=== PATIENT | female | born 1970 | race Hispanic/Latino ===

== ENCOUNTER 2019-05-20 13:25 | Outpatient (CLI) | payer BC ==
[~2019-05-20 13:25] MED LIST: Iopamidol-370 76% 500 ML 1 ML ONE
--- NOTE | 2019-05-20 15:30 | CT ---
CT ABDOMEN AND PELVIS WITH IV CONTRAST 05/20/2019 CLINICAL INFORMATION: Left lower quadrant abdominal pain. COMPARISON: None. Technique: Multiple contiguous axial CT images are obtained through the abdomen and pelvis with IV contrast. Cor onal reformatted images are provided. FINDINGS: Lower Chest: within normal limits. Vessels: Abdominal aorta is normal in caliber without evidence of an aortic dissection. Abdomen: Portal vein:Patent Gallbladder: Within normal limits for CT imaging. Liver: within normal limits. Spleen: within normal limits. Pancreas: within normal limits. Adrenals: within normal limits. Kidneys: within normal limits. Bowel: Normal caliber. Appendix: The appendix is visualized and normal in caliber. Peritoneum: No ascites or free air; no fluid collection. Mesentery and Retroperitoneum: No enlarged mesenteric or retroperitoneal lymph nodes. Abdominal Wall: within normal limits. Pelvis: Reproductive Organs: No pelvic masses. Pelvis within normal limits. Bladder: Decompressed Bones: Mild degenerative changes visualized lower thoracic spine. IMPRESSION: No acute findings in the abdomen or pelvis.
== END 2019-05-20 13:26 | disposition home or self-care (01) ==
LOC: BICCT 13:25
PROVIDERS: ATTEND Physician Assistant
DX: R10.32 Left lower quadrant pain (principal)
CPT/HCPCS: 74177; Q9967

== ENCOUNTER 2025-02-14 16:26 | Emergency (ER) | payer BC | END 2025-02-14 18:00 | disposition home or self-care (01) | LOC: ERS 16:26 | DX: M54.50 Low back pain, unspecified (principal) | CPT/HCPCS: 96372; 99283 ==